=== PATIENT | male | born 1990 | race Caucasian/White ===

== ENCOUNTER 2016-11-18 23:16 | Emergency (ER) | payer OTHER ==
[2016-11-18] MEDS ORDERED: AMOXICILLIN 250 MG CAPSULE PO STA (23:28)
[2016-11-18] MEDS ORDERED: DEXAMETHASONE 10 MG/ML VIAL PO STA (23:28)
[2016-11-18] MEDS ORDERED: IBUPROFEN 600 MG TABLET PO STA (23:28)
[2016-11-18] MEDS ORDERED: AMOXICILLIN 250 MG CAPSULE PO ONE (23:30)
[2016-11-18] MEDS ORDERED: IBUPROFEN 600 MG TABLET PO ONE (23:31)
[2016-11-18] MEDS ORDERED: DEXAMETHASONE 10 MG/ML VIAL ONE (23:31)
[2016-11-18 23:42] LABS: RAPID STREP SCREEN REAGENT QC YELLOW (YELLOW)
[2016-11-19 00:14] LABS: MONO NEG QC NEGATIVE (Negative); MONO POS QC POSITIVE (Positive)
--- NOTE | 2016-11-19 00:28 | ED Physician Documentation ---
PD HPI HEENT - Stated complaint Stated Complaint: SORE THROAT - Chief complaint Chief Complaint: Heent - History obtained from History obtained from: Patient - History of Present Illness Timing - onset: How many days ago (7) Timing - details: Gradual onset, Still present Location: Right ear, Left ear, Throat Improves: Nothing Worsens: Swalllowing Associated symptoms: Fever, Congestion, Swollen nodes Similar symptoms before: No diagnosis Recently seen: Clinic - Additional information Additional information: Patient is a 26 year old male with no significant past medical history who is presenting to the emergency department for sore throat, fevers, congestion. patient states that his symptoms started a week ago and he was told it was a virus. Patient presenting to the emergency department tonight for worsening symptoms. Review of Systems Constitutional: reports: Fever, Chills Eyes: denies: Loss of vision, Decreased vision, Photophobia Ears: reports: Loss of hearing, Ear pain Nose: denies: Rhinorrhea / runny nose, Congestion, Sinus pressure / pain Throat: reports: Sore throat, Swollen tonsils Cardiac: denies: Chest pain / pressure, Palpitations Respiratory: denies: Dyspnea, Cough, Wheezing GI: denies: Abdominal Pain, Nausea, Vomiting : denies: Dysuria, Frequency Skin: denies: Rash, Lesions Musculoskeletal: denies: Neck pain, Back pain, Extremity pain, Joint pain Neurologic: denies: Generalized weakness, Focal weakness, Numbness Immunocompromised: denies: Immunocompromised PD PAST MEDICAL HISTORY - Past Medical History Past Medical History: No - Past Surgical History Past Surgical History: No - Present Medications Home Medications: Ambulatory Orders Medication Instructions Recorded Confirmed Amoxicillin 1,000 mg PO TID 7 Days 11/19/16 - Allergies Allergies/Adverse Reactions: Allergies Allergy/AdvReac Type Severity Reaction Status Date / Time No Known Drug Allergies Allergy Verified 11/18/16 23:23 - Social History Does the pt smoke?: No Smoking Status: Never smoker Does the pt drink ETOH?: Yes Does the pt have substance abuse?: No - Immunizations Immunizations are current?: Yes - POLST Patient has POLST: No PD ED PE NORMAL - Vitals Vital signs reviewed: Yes - General General: Alert and oriented X 3, No acute distress, Well developed/nourished - HEENT HEENT: Atraumatic, PERRL, Dentition benign - Neck Neck: Supple, no meningeal sign, No adenopathy - Cardiac Cardiac: RRR, No murmur, No rub - Respiratory Respiratory: No respiratory distress, Clear bilaterally - Abdomen Abdomen: Soft, Non tender, Non distended - Derm Derm: Normal color, Warm and dry, No rash - Extremities Extremities: No deformity, No tenderness to palpate, Normal ROM s pain, No edema , No calf tenderness / cord - Neuro Neuro: Alert and oriented X 3, paper inspector 2-12 intact, No motor deficit, No sensory deficit, Normal speech - Psych Psych: Normal mood, Normal affect PD ED PE EXPANDED - HEENT HEENT: R TM bulging, L TM bulging (serous buildup behind both ears ), Pharyngeal erythema, Swollen tonsils, Tonsillar exudate Results - Vitals Vitals: Vital Signs - 24 hr 11/18/16 11/19/16 23:19 00:38 Temperature 36.9 C 36.6 C Heart Rate 68 82 Respiratory 18 15 Rate Blood Pressure 144/85 H 137/84 H O2 Saturation 100 99 Oxygen O2 Source Room air - Labs Labs: Laboratory Tests 11/18/16 11/19/16 23:20 00:00 Infectious Sharp Assay NEGATIVE Group A Strep Rapid Negative PD MEDICAL DECISION MAKING - ED course Complexity details: reviewed old records, reviewed results, re-evaluated patient , considered differential, d/w patient ED course: Patient was seen and examined at bedside. patient's vital signs were within normal limits. rapid strep was done, as well as a monospot test. both were negative. Due to the buldging tm and serous build up patient was started on amox and decadron. patient tolerated the treatment well and was stable for discharge with outpatient followup. Departure - Departure Disposition: 01 Home, Self Care Clinical Impression: Otitis media Condition: Good Instructions: ED Otitis Media Serous Adult, ED Otitis Media Acute Adult Follow-Up: primary,care provider [Other] - Within 3 Days Prescriptions: Amoxicillin 1,000 mg PO TID 7 Days Comments: Your strep test and monotest were negative today, but you did have fluid collections behind both of your ears. You had your first dose of antibiotics tonight and you will need to take it three times a day for the next week. you should take it with food. you can take motrin, tylenol or over the counter lozenges for pain. You should follow up with your pmd if your symptoms dont improve. You may return to the emergency department at any time for new, worsening or ucontrollable symptoms. Discharge Date/Time: 11/19/16 00:46
[2016-11-19 00:39] VITALS: BP 137/84
== END 2016-11-19 00:46 | disposition home or self-care (01) ==
LOC: ED 23:16
DX: J02.9 Acute pharyngitis, unspecified (principal); H66.93 Otitis media, unspecified, bilateral; R59.0 Localized enlarged lymph nodes; H92.03 Otalgia, bilateral
CPT/HCPCS: 36415; 86308; 87070; 87430; 99283; A9270

== ENCOUNTER 2017-06-21 15:12 | Emergency (ER) | payer OTHER ==
[2017-06-21 15:24] VITALS: BP 118/74
[2017-06-21 15:44] LABS: BILIRUBIN,URINE NEGATIVE (NEGATIVE)
[2017-06-21 15:51] LABS: UA w/ MICROSCOPIC CHARGE YES
[2017-06-21 15:53] LABS: UR CULTURE IF IND INDICATED; WBC,URINE >25 /HPF (0-3)
[2017-06-21] MEDS ORDERED: levoFLOXacin 250 MG TABLET PO STA (15:57)
--- NOTE | 2017-06-21 15:58 | ED Physician Documentation ---
PD HPI MALE - Stated complaint Stated Complaint: MALE - Chief complaint Chief Complaint: UTI - History obtained from History obtained from: Patient - History of Present Illness Timing - onset: Today Timing - details: Gradual onset, Still present Associated symptoms: Dysuria, Urinary frequency PD HPI MALE CONTRIB FACTORS: Sexually active Similar symptoms before: Work up / diagnostics, Treatment Recently seen: Not recently seen - Additional information Additional information: Patient is a 27 year old male presenting to the emergency department for increased urinary frequency and dysuria. Patient states that he had a urinary tract infection in the past, and had a work up done but they could not find any abnormalities that would explain him getting urinary tract infections. patient states that he has had the symptoms for the last few days. patient states that he took azo today. Review of Systems Constitutional: denies: Fever, Chills Eyes: denies: Decreased vision, Photophobia Ears: denies: Ear pain, Drainage/discharge Nose: denies: Congestion Throat: denies: Sore throat Respiratory: denies: Cough GI: denies: Abdominal Pain, Nausea, Vomiting : reports: Dysuria, Frequency, Hematuria Skin: denies: Rash, Lesions Neurologic: reports: Reviewed and negative Psychiatric: reports: Reviewed and negative Immunocompromised: denies: Immunocompromised PD PAST MEDICAL HISTORY - Past Surgical History Past Surgical History: No - Present Medications Home Medications: Ambulatory Orders Medication Instructions Recorded Confirmed Levofloxacin [Levaquin] 750 mg PO DAILY #5 tablet 06/21/17 - Allergies Allergies/Adverse Reactions: Allergies Allergy/AdvReac Type Severity Reaction Status Date / Time No Known Drug Allergies Allergy Verified 11/18/16 23:23 - Social History Does the pt smoke?: No Smoking Status: Never smoker Does the pt drink ETOH?: Yes Does the pt have substance abuse?: No - Immunizations Immunizations are current?: Yes - POLST Patient has POLST: No PD ED PE NORMAL - Vitals Vital signs reviewed: Yes - General General: Alert and oriented X 3, No acute distress - HEENT HEENT: Atraumatic, PERRL, Moist mucous membranes - Neck Neck: Supple, no meningeal sign - Cardiac Cardiac: RRR - Respiratory Respiratory: No respiratory distress - Abdomen Abdomen: Soft, Non tender, Non distended - Derm Derm: Normal color, Warm and dry - Extremities Extremities: No deformity - Neuro Neuro: Alert and oriented X 3, No motor deficit, No sensory deficit, Normal speech - Psych Psych: Normal mood Results - Vitals Vitals: Vital Signs - 24 hr 06/21/17 15:21 Temperature 37.6 C H Heart Rate 88 Respiratory 12 Rate Blood Pressure 118/74 O2 Saturation 98 Oxygen O2 Source Room air - Labs Labs: Laboratory Tests 06/21/17 15:35 Urine Color ORANGE Urine Clarity CLEAR Urine pH 6.0 Ur Specific [place] <=1.005 Urine Protein 30 H Urine Glucose (UA) Urine Ketones NEGATIVE Urine Occult Blood Urine Nitrite POSITIVE H Urine Bilirubin NEGATIVE Urine Urobilinogen Ur Leukocyte Esterase LARGE H Urine RBC 0-5 Urine WBC >25 H Ur Squamous Epith Cells NONE SEEN Urine Bacteria Moderate H Ur Microscopic Review INDICATED Urine Culture Comments INDICATED PD MEDICAL DECISION MAKING - ED course Complexity details: reviewed old records, reviewed results, re-evaluated patient , considered differential, d/w patient ED course: Patient was seen and examined at bedside. patient was well appearing and in no acute distress. Patient's urine was collected and consistent with a urinary tract infection. Patient was treated with levaquin and given detailed discharge and follow up instructions. patient required no further work up and was stable for discharge with outpatient follow up. Departure - Departure Disposition: 01 Home, Self Care Clinical Impression: Urinary tract infection Condition: Good Instructions: ED UTI Cystitis Male Follow-Up: primary,care provider [Other] - Within 3 Days Prescriptions: Levofloxacin [Levaquin] 750 mg PO DAILY #5 tablet Comments: Your symptoms today are being caused by a urinary tract infection. You had your first dose of antibiotics and will be on them for the next 5 days. You should stay well hydrated and can continue with the azo. You should follow up with your doctor tomorrow. You can return to the emergency department at any time for new, worsening or uncontrollable symptoms. Forms: Activity restrictions
== END 2017-06-21 16:10 | disposition home or self-care (01) ==
LOC: ED 15:12
DX: N39.0 Urinary tract infection, site not specified (principal)
CPT/HCPCS: 81001; 87086; 87181; 99283; A9270; 81003

== ENCOUNTER 2017-06-27 17:26 | Emergency (ER) | payer OTHER ==
--- NOTE | 2017-06-27 18:00 | ED Physician Documentation ---
PD HPI ABD PAIN - Stated complaint Stated Complaint: MALE FOLLOW UP - Chief complaint Chief Complaint: Abd Pain - History obtained from History obtained from: Patient - History of Present Illness Timing - onset: Other (27-year-old gentleman, active duty in the [employer] with no health problems. He had a UTI I guess about 4 months ago with marked hematuria. He says he was transferred down to [facility] and and per his description it sounds like he had a pretty extensive workup including CT and ultrasound, they found a UTI but no other significant abnormalities. He was seen here in [facility] and diagnosed with UTI, culture grew E. coli and he was placed on Levaquin to which it was sensitive. He finished it today, but now has more urinary burning and some irritation at the tip of the penis and also a sore throat without fevers or body aches.) Review of Systems Constitutional: denies: Fever, Chills Throat: reports: Sore throat Respiratory: denies: Dyspnea, Cough GI: denies: Abdominal Pain, Nausea, Vomiting, Diarrhea PD PAST MEDICAL HISTORY - Past Medical History Past Medical History: No - Past Surgical History Past Surgical History: No - Present Medications Home Medications: Ambulatory Orders Medication Instructions Recorded Confirmed Clotrimazole [Clotrimazole AF] 1 gm TP TID #1 cream..g. 06/27/17 - Allergies Allergies/Adverse Reactions: Allergies Allergy/AdvReac Type Severity Reaction Status Date / Time No Known Drug Allergies Allergy Verified 06/27/17 17:36 - Social History Does the pt smoke?: No Smoking Status: Never smoker Does the pt drink ETOH?: Yes Does the pt have substance abuse?: No - Immunizations Immunizations are current?: Yes - POLST Patient has POLST: No PD ED PE NORMAL - Vitals Vital signs reviewed: Yes - General General: Alert and oriented X 3, No acute distress - HEENT HEENT: Pharynx benign - Abdomen Abdomen: Soft, Non tender - Male Male : Other (Mild urethritis without other reash/lesion) - Derm Derm: No rash - Neuro Neuro: Alert and oriented X 3, Normal speech - Psych Psych: Normal mood, Normal affect Results - Vitals Vitals: Vital Signs - 24 hr 06/27/17 17:33 Temperature 36.9 C Heart Rate 84 Respiratory 18 Rate Blood Pressure 116/76 O2 Saturation 99 Oxygen O2 Source Room air - Labs Labs: Laboratory Tests 06/27/17 06/27/17 17:46 17:48 Urine Color YELLOW Urine Clarity CLEAR Urine pH 6.0 Ur Specific [place] 1.025 Urine Protein NEGATIVE Urine Glucose (UA) NEGATIVE Urine Ketones NEGATIVE Urine Occult Blood NEGATIVE Urine Nitrite NEGATIVE Urine Bilirubin NEGATIVE Urine Urobilinogen 0.2 (NORMAL) Ur Leukocyte Esterase NEGATIVE Ur Microscopic Review NOT INDICATED Urine Culture Comments NOT INDICATED Group A Strep Rapid Negative PD MEDICAL DECISION MAKING - ED course ED course: 27-year-old with pharyngitis but no overt findings there, strep test negative, also urethritis with recent UTI. His urine is now clean. We discussed the potential for STD, he is in a monogamous relationship and does not think he is at risk. Swabs were sent and this could be yeast as well so we will start him on clotrimazole pending follow-up. Departure - Departure Disposition: 01 Home, Self Care Clinical Impression: Dysuria, Viral pharyngitis Condition: Good Record reviewed to determine appropriate education?: Yes Instructions: ED Dysuria Uncertain Cause Prescriptions: Clotrimazole [Clotrimazole AF] 1 gm TP TID #1 cream..g. Comments: We will call if either of your cultures, positive, [place]
[2017-06-27 18:05] LABS: BILIRUBIN,URINE NEGATIVE (NEGATIVE); GLUCOSE, URINE (UA) NEGATIVE (NEGATIVE); KETONES,URINE (UA) NEGATIVE (NEGATIVE); LEUKOCYTE ESTERASE, URINE NEGATIVE (NEGATIVE); NITRITE,URINE NEGATIVE (NEGATIVE); OCCULT BLOOD,URINE NEGATIVE (NEGATIVE); PROTEIN,URINE NEGATIVE (NEGATIVE); UROBILINOGEN,URINE 0.2 (NORMAL) E.U./dL (NORMAL)
[2017-06-27 18:08] LABS: CLARITY,URINE CLEAR (CLEAR)
[2017-06-27 18:43] VITALS: BP 131/90
[2017-06-27] MEDS ORDERED: IBUPROFEN 800 MG TABLET PO STA (18:45)
== END 2017-06-27 18:50 | disposition home or self-care (01) ==
LOC: ED 17:26
DX: R30.0 Dysuria (principal); J02.8 Acute pharyngitis due to other specified organisms; B97.89 Other viral agents as the cause of diseases classified elsewhere
CPT/HCPCS: 81003; 87070; 87430; 87491; 87591; 99283; A9270; 81001; 87086

== ENCOUNTER 2017-10-26 04:03 | Emergency (ER) | payer OTHER ==
[2017-10-26 04:12] VITALS: BP 128/74
--- NOTE | 2017-10-26 04:13 | ED Physician Documentation ---
PD HPI MALE - Stated complaint Stated Complaint: MALE - Chief complaint Chief Complaint: Abd Pain - History obtained from History obtained from: Patient - History of Present Illness Timing - onset: How many hours ago (2) Timing - details: Abrupt onset Pain level max: 0 Pain level now: 0 Associated symptoms: No: Dysuria, Urinary frequency PD HPI MALE CONTRIB FACTORS: Other (had been sexually active with one partner x nine months and has not had intercourse since breaking up with this person) Similar symptoms before: Diagnosis (UTI) Recently seen: Not recently seen - Additional information Additional information: 2 hours [employer], noted cloudy urine with foul odor. Review of Systems Constitutional: reports: Reviewed and negative GI: denies: Abdominal Pain : denies: Dysuria, Frequency, Hematuria, Discharge Musculoskeletal: denies: Back pain PD PAST MEDICAL HISTORY - Past Medical History Past Medical History: Yes - Past Surgical History Past Surgical History: No - Present Medications Home Medications: Ambulatory Orders Medication Instructions Recorded Confirmed No Known Home Medications [No 10/26/17 10/26/17 Known Home Medications] - Allergies Allergies/Adverse Reactions: Allergies Allergy/AdvReac Type Severity Reaction Status Date / Time No Known Drug Allergies Allergy Verified 10/26/17 04:12 - Social History Does the pt smoke?: No Smoking Status: Never smoker Does the pt drink ETOH?: Yes Does the pt have substance abuse?: No - Immunizations Immunizations are current?: Yes - POLST Patient has POLST: No PD ED PE NORMAL - Vitals Vital signs reviewed: Yes - General General: Alert and oriented X 3, No acute distress, Well developed/nourished - Abdomen Abdomen: Soft, Non tender PD ED PE EXPANDED - Male Male : Normal Exam. No: Circumcised, Skin lesions, Discharge Results - Vitals Vitals: Vital Signs - 24 hr 10/26/17 10/26/17 10/26/17 04:10 05:17 05:50 Temperature 36.6 C Heart Rate 71 Respiratory 16 16 16 Rate Blood Pressure 128/74 O2 Saturation 100 Oxygen O2 Source Room air - Labs Labs: Laboratory Tests 10/26/17 04:31 Urine Color LT. YELLOW Urine Clarity CLEAR Urine pH 6.0 Ur Specific [place] 1.010 Urine Protein NEGATIVE Urine Glucose (UA) NEGATIVE Urine Ketones NEGATIVE Urine Occult Blood NEGATIVE Urine Nitrite NEGATIVE Urine Bilirubin NEGATIVE Urine Urobilinogen 0.2 (NORMAL) Ur Leukocyte Esterase NEGATIVE Ur Microscopic Review NOT INDICATED Urine Culture Comments NOT INDICATED PD MEDICAL DECISION MAKING - ED course Complexity details: reviewed results, re-evaluated patient, considered differential, d/w patient ED course: few months ago, patient had urine culture (+) e.coli. however, UA is normal today. he has been tested at least twice for STD (here and he says either one or two other times at [facility] and [facility]), and those have been negative results. those tests were performed while he was monogamous with one partner and although he is no longer with this person, he has nit had intercourse with anyone else since then (thus GC/C not performed on this visit). Departure - Departure Disposition: 01 Home, Self Care Clinical Impression: Dysuria Condition: Good Instructions: ED Dysuria Uncertain Cause Follow-Up: STEFFANIE Aaron [Provider Group] Discharge Date/Time: 10/26/17 05:51
[2017-10-26 04:37] LABS: BILIRUBIN,URINE NEGATIVE (NEGATIVE); GLUCOSE, URINE (UA) NEGATIVE (NEGATIVE); KETONES,URINE (UA) NEGATIVE (NEGATIVE); LEUKOCYTE ESTERASE, URINE NEGATIVE (NEGATIVE); NITRITE,URINE NEGATIVE (NEGATIVE); OCCULT BLOOD,URINE NEGATIVE (NEGATIVE); PROTEIN,URINE NEGATIVE (NEGATIVE); UROBILINOGEN,URINE 0.2 (NORMAL) E.U./dL (NORMAL)
[2017-10-26 04:42] LABS: CLARITY,URINE CLEAR (CLEAR)
== END 2017-10-26 05:51 | disposition home or self-care (01) ==
LOC: ED 04:03
DX: R30.0 Dysuria (principal)
CPT/HCPCS: 81001; 81003; 87086; 99283